=== PATIENT | male | born 1955 | race Caucasian/White ===

== ENCOUNTER → 2017-12-17 07:17 | Outpatient (CLI) | payer OTHER, MEDICAID, SELFPAY ==
[2017-12-17 09:02] LABS: Free T3, Triiodothyronine Free 5.72 pg/mL (2.77-5.27); Free T4, Direct Thyroxine 1.31 ng/dL (0.78-2.19); Triiodothryronine T3 Uptake 31.7 % (23.5-40.5)
[2017-12-17 09:15] LABS: Thyroid Stimulating Hormone 0.33 uIU/mL (0.47-4.68)
== END ==
PROVIDERS: PCP Nurse Practitioner Family; Visit Provider Nurse Practitioner Family
DX: E05.90 Thyrotoxicosis, unspecified without thyrotoxic crisis or storm (principal)
CPT/HCPCS: 36415; 84439; 84443; 84479; 84481

== ENCOUNTER → 2018-02-02 09:28 | Outpatient (CLI) | payer OTHER, MEDICAID, SELFPAY ==
[2018-02-02 11:25] LABS: Free T3, Triiodothyronine Free 5.28 pg/mL (2.77-5.27); Free T4, Direct Thyroxine 1.41 ng/dL (0.78-2.19); Triiodothryronine T3 Uptake 34.3 % (23.5-40.5)
[2018-02-02 11:39] LABS: Thyroid Stimulating Hormone 0.28 uIU/mL (0.47-4.68)
[2018-02-05 20:27] LABS: Testosterone Free 53.4 pg/mL (35.0-155.0); Testosterone Total 483 ng/dL (250-1100)
== END ==
PROVIDERS: Family Provider Nurse Practitioner Family; PCP Nurse Practitioner Family; Visit Provider Nurse Practitioner Family
DX: R53.83 Other fatigue (principal); E05.90 Thyrotoxicosis, unspecified without thyrotoxic crisis or storm
CPT/HCPCS: 36415; 84402; 84403; 84439; 84443; 84479; 84481

== ENCOUNTER → 2018-04-20 07:57 | Outpatient (CLI) | payer OTHER, MEDICAID, SELFPAY ==
--- NOTE | 2018-04-20 | DI.US.S_ITS ---
PROCEDURE: US ABDOMEN COMPLETE INDICATIONS: ABDOMINAL PAIN TECHNIQUE: Real-time scanning was performed of the abdominal and retroperitoneal organs, with image documentation. COMPARISON: [facility], CT, CT ABD PELVIS W CON, 01/20/2016, 10:46. FINDINGS: Liver: Liver is normal in size and homogeneous in echotexture. Gallbladder: Gallbladder demonstrates nonmobile areas of increased echogenicity the largest measuring 1 cm. Wall thickness is within normal limits measuring 2.4 mm. Biliary ducts: Intrahepatic bile ducts are non-dilated. Extrahepatic bile duct caliber measures 6 mm. Normal is 6-7 mm or less in diameter, or 10 mm or less post-cholecystectomy. Pancreas: Visualized portions of the pancreas are sonographically normal. Spleen: Spleen is normal in size and homogeneous in echotexture. Kidneys: Kidneys are normal in size and echotexture. Right kidney measures 11.9 cm long; left kidney measures 11.9 cm long. No hydronephrosis or nephrolithiasis. No solid masses. Aorta: Visualized aorta is normal in caliber at less than 3 cm. Iliacs: Proximal common iliac arteries are normal in caliber at less than 2.5 cm. IVC: Intrahepatic inferior vena cava is patent. Miscellaneous: No free abdominal fluid. IMPRESSION: 1. Multiple foci of non-mobile increased echogenicity within the gallbladder suggestive of polyps. Dictated by: Liliana Gonzalez M.D. on 04/20/2018 at 11:17 Approved by: Liliana Gonzalez M.D. on 04/20/2018 at 11:19
== END ==
PROVIDERS: Family Provider Nurse Practitioner Family; PCP Nurse Practitioner Family; Visit Provider Nurse Practitioner Family
DX: R10.9 Unspecified abdominal pain (principal)
CPT/HCPCS: 76700

== ENCOUNTER 2018-05-20 10:08 | Day surgery (SDC) | payer OTHER, MEDICAID, SELFPAY ==
[2018-05-20 10:35] VITALS: BP 175/95; PULSE 89; RESP 16; TEMP 36.2; O2SAT 93; BMI 28.8
--- NOTE | 2018-05-20 10:38 | P.HP_ITS ---
History of Present Illness Date Patient Seen: 05/20/18 Chief complaint: [id number] Narrative: 62-year-old male with a family history of colon cancer in his father who is here for colon polyp surveillance. His last colonoscopy was in 2012 and the patient states that he had polyps on that exam. The procedure report is not available to wi Meds Allergies Allergy/AdvReac Type Severity Reaction Status Date / Time No Known Drug Allergies Allergy Verified 05/20/18 10:33 Review of Systems Review of Systems All systems reviewed & are unremarkable except as noted in HPI and below Exam Narrative Exam Narrative: General: Patient is overweight, not in apparent distress Cardiovascular: Regular rate and rhythm, no murmurs, rubs, or gallops; no evidence of edema; no palpable abdominal aortic aneurysm Gastrointestinal: Normoactive bowel sounds, soft, nontender, nondistended, no rebound tenderness, no hepatosplenomegaly, no evidence of hernia Assessment & Plan Plan: Assessment/Plan Narrative: 62-year-old male with a family history of colon cancer in his father who is here for colon polyp surveillance. Prior colonoscopy in 2012 revealed polyps per the patient. He has no active GI symptoms at present Regarding the procedure(s), the risks and potential complications, benefits, and alternatives (including not doing the procedure) were discussed with the patient. The risks include but are not limited to bleeding, splenic injury, infection, perforation which may require surgical intervention, missed lesions, and adverse reactions to sedative medicines. After a question and answer period , the patient agreed to proceed with the procedure(s) and gives informed consent.
[2018-05-20] MEDS: SODIUM CHLORIDE 0.9% 1,000 ML 70 ML IV (10:41)
--- NOTE | 2018-05-20 11:38 | P.OP.ENDO_ITS ---
Operative Date/Time/Diagnoses Date of procedure: 05/20/18 Procedure Notes Procedure in detail: Surgeon: Ed Monique MD Procedure: Colonoscopy Preoperative diagnosis: Colon polyp surveillance with polyps of unknown histology in 2013; family history of colon cancer in father Postoperative diagnosis: Left-sided diverticulosis, grade 2 internal hemorrhoids Medications: Conscious sedation using 5 mg IV of Midazolam and 100 mcg IV of Fentanyl Preanesthesia Assessment An H and P was performed/updated and the Px?s ASA class is 2. The procedure was discussed in detail with the patient. The potential risks and complications including infection, bleeding, missed lesions, perforation, need for surgery in case of perforation, prolonged hospital stay, and were explained. A brief question and answer period was allotted and once all questions were answered, informed consent was obtained. The patient was brought back to the procedure room and placed on standard monitoring. The patient?s vital signs were monitored continuously throughout the entire procedure. Prior to starting, a timeout was performed to confirm the patient?s identity, allergies, medications, and procedure. Procedure in detail The patient was placed in left lateral decubitus position and once adequate sedation was obtained a VANESSA was performed. The digital rectal examination did not reveal any palpable lesions. The tip of the colonoscope was placed in the anal canal and advanced without difficulty all the way to the cecum which was identified by the appendiceal orifice and the ileocecal valve. The terminal ileum was intubated to a distance of 5 cm from the ileocecal valve and there was no note of any mucosal abnormality. The colonoscope was brought back to the cecum and careful examination of all fierro of the colon was performed with irrigation of any residual stool. The colonic mucosa appeared without abnormality with no polyp seen. In the descending colon and sigmoid colon there were note of multiple medium- size diverticula Retroflexion was performed in the rectum which revealed grade 2 internal hemorrhoids The patient tolerated the procedure well and will be brought back to the recovery area to be discharged once criteria are met. The prep was judged to be good and adequate to identify polyps less than 5 mm. The withdrawal time was 8 min. The total physician intraservice time was 13 min. Complications There were no complications and estimated blood loss was none. Recommendations: High fiber diet Continue outPx medications Repeat colonoscopy in 5 years for surveillance An emergency contact number was given to the patient for any complications related to the procedure
[2018-05-20] MEDS: MIDAZOLAM 5 MG/5 ML VIAL IV (11:42)
[2018-05-20] MEDS: fentaNYL 250 MCG/5 ML INJ IV (11:42)
--- NOTE | 2018-05-20 11:53 | PM.DS.1 ---
History of Present Illness Chief complaint: [id number] Narrative: 62-year-old male with a family history of colon cancer in his father who is here for colon polyp surveillance. His last colonoscopy was in 2012 and the patient states that he had polyps on that exam. The procedure report is not available to me Discharge Providers Primary care physician: SEEMA Sandoval Discharge provider: Ed Monique MD Discharge Date: 05/20/18 Exam Vital Signs (past 8 hours): - 05/20/18 10:35 Temperature 97.2 F L Pulse Rate 89 Respiratory Rate 16 Blood Pressure 175/95 H Pulse Oximetry 93 Oxygen Delivery Method Room Air Narrative Exam Narrative: General: Patient is overweight, not in apparent distress Cardiovascular: Regular rate and rhythm, no murmurs, rubs, or gallops; no evidence of edema; no palpable abdominal aortic aneurysm Gastrointestinal: Normoactive bowel sounds, soft, nontender, nondistended, no rebound tenderness, no hepatosplenomegaly, no evidence of hernia Discharge Plan Discharge Plan Patient Disposition: Home Discharge Med Rec/Prescriptions Discharge Orders: Discharge (Order); Ordered 05/20/18 Ordered By: Ed Monique Provider Discharge Instructions Diet: Diet as Tolerated Visit Report/Discharge Packet Stand Alone Forms: Surgery Discharge Discharge Data Primary Care Provider: Ratna Jennings Attending Provider: Ed Monique
[2018-05-20 12:20] VITALS: BP 131/84; PULSE 86; RESP 20; TEMP 36.6; O2SAT 95
== END 2018-05-20 12:20 | disposition home or self-care (01) ==
PROVIDERS: Family Provider Nurse Practitioner Family; PCP Nurse Practitioner Family; Visit Provider Internal Medicine Gastroenterology
PROC: 0DJD8ZZ Inspection of Lower Intestinal Tract, Via Natural or Artificial Opening Endoscopic (ICD-10-PCS; CPT 45378; principal; 2018-05-20 11:30)
DX: Z86.010 Personal history of colon polyps (principal); Z80.0 Family history of malignant neoplasm of digestive organs; K57.30 Diverticulosis of large intestine without perforation or abscess without bleeding; K64.1 Second degree hemorrhoids
CPT/HCPCS: 45378; J2250; J3010

== ENCOUNTER → 2018-09-09 12:19 | Outpatient (CLI) | payer OTHER, MEDICAID, SELFPAY ==
[2018-09-09 12:52] LABS: Add Manual Diff / Slide Review NO; Basophils Absolute Auto 0 /uL (0-100); Basophils Percent Auto 0.5 % (0-2); Eosinophils Absolute Auto 100 /uL (0-450); Eosinophils Percent Auto 1.3 % (2-4); Hematocrit 47.6 % (41-53); Hemoglobin 16.2 g/dL (13.5-17.5); Lymphocytes Absolute Auto 1700 /uL (1100-4500); Lymphocytes Percent Auto 25.6 % (25-40); Mean Corpuscular Hemoglobin 32.2 PG (26-34); Mean Corpuscular Volume 94.5 fL (80-100); Monocytes Absolute Auto 500 /uL (0-900); Monocytes Percent Auto 7.4 % (3-14); Neutrophils Absolute Auto 4300 /uL (1500-7000); Neutrophils Percent Auto 65.2 % (50-75); Platelet Count 283 X10^3/uL (150-400); Red Blood Cell Count 5.03 X10^6/uL (4.5-5.9); Red Cell Distribution Width 13.4 % (11.6-14.8); White Blood Cell Count 6.6 X10^3/uL (4.5-11.0)
[2018-09-09 13:29] LABS: Alanine Aminotransferase 43 IU/L (21-72); Albumin 4.7 g/dL (3.5-5.0); Albumin Globulin Ratio 1.3 (1.0-2.8); Alkaline Phosphatase 71 U/L (38-126); Amylase 111 U/L (30-110); Aspartate Aminotransferase 31 IU/L (17-59); Bilirubin Total 0.2 mg/dL (0.2-1.3); Blood Urea Nitrogen 14 mg/dL (9-20); Calcium 9.8 mg/dL (8.4-10.2); Carbon Dioxide 27 mmol/L (22-32); Chloride 100 mmol/L (98-107); Estimated Glomerular Filt Rate > 60.0 mL/min (>60); Globulin 3.6 g/dL (1.7-4.1); Glucose 115 mg/dL (80-110); HEMOLYSIS 16 (0-50); Lipase 61 U/L (23-300); Potassium 4.4 mmol/L (3.4-5.1); Sodium 138 mmol/L (137-145); Total Protein 8.3 g/dL (6.3-8.2)
[2018-09-09 13:46] LABS: Free T3, Triiodothyronine Free 5.64 pg/mL (2.77-5.27); Free T4, Direct Thyroxine 1.28 ng/dL (0.78-2.19); T4 Total Thyroxine 9.97 ug/dL (5.5-11.0)
[2018-09-09 13:59] LABS: Thyroid Stimulating Hormone 0.47 uIU/mL (0.47-4.68)
[2018-09-12 14:24] LABS: PSA Free % 33 % (calc) (> 25); PSA, Total 1.5 ng/mL (< 4.1)
== END ==
PROVIDERS: Family Provider Nurse Practitioner Family; PCP Nurse Practitioner Family; Visit Provider Nurse Practitioner Family
DX: E05.90 Thyrotoxicosis, unspecified without thyrotoxic crisis or storm (principal); N40.0 Benign prostatic hyperplasia without lower urinary tract symptoms; R21 Rash and other nonspecific skin eruption; R52 Pain, unspecified
CPT/HCPCS: 36415; 80053; 82150; 83690; 84153; 84154; 84436; 84439; 84443; 84481; 85025

== ENCOUNTER → 2019-02-23 07:56 | Outpatient (CLI) | payer OTHER, MEDICAID, SELFPAY ==
--- NOTE | 2019-02-23 | DI.CT.S_ITS ---
PROCEDURE: CT ABDOMEN PELVIS W CON INDICATIONS: change in bowel habbits TECHNIQUE: After the administration of oral and intravenous contrast, 5 mm thick sections acquired from the diaphragms to the symphysis. 5 mm thick coronal and sagittal reformats were performed. For radiation dose reduction, the following was used: automated exposure control, adjustment of mA and/or kV according to patient size. COMPARISON: [facility], , ABDOMEN COMPLETE, 04/20/2018, 8:39. FINDINGS: Image quality: Excellent. ABDOMEN: Lung bases: Lung bases are clear. Heart size is normal. Solid organs: Liver is normal in size and enhancement. Gallbladder appears normal. Biliary system is non-dilated. Pancreas enhances normally. Spleen is normal in size and enhancement. No adrenal nodules. Kidneys are normal in size and enhancement, without hydronephrosis. Peritoneum and bowel: Stomach, small bowel, and colon loops are normal in caliber and wall thickness. No free fluid or air. Nodes and vessels: No retroperitoneal or mesenteric adenopathy. Aorta and inferior vena cava are normal in caliber. Miscellaneous: No ventral hernias. PELVIS: Genitourinary: Bladder wall thickness is normal. Miscellaneous: No inguinal hernias or adenopathy. Stool is present within the colon to the degree that accurate assessment for presence or absence of a colonic malignancy that is plaque-like or small is limited. Bones: No suspicious bony lesions. No vertebral body compression fractures. IMPRESSION: Source of change in bowel habits is not known. The study appears normal for age. Please note that stool present within the colon significantly degrades the ability of the examination to detect colonic malignancy. Please correlate for whether endoscopic evaluation of the colon has been performed. Dictated by: Brennan Stanley M.D. on 02/23/2019 at 10:26 Approved by: Brennan Stanley M.D. on 02/23/2019 at 10:40
== END ==
PROVIDERS: PCP Student in an Organized Health Care Education/Training Program; Visit Provider Student in an Organized Health Care Education/Training Program
DX: R19.4 Change in bowel habit (principal)
CPT/HCPCS: 74177; Q9967

== ENCOUNTER → 2019-04-08 07:16 | Outpatient (CLI) | payer OTHER, MEDICAID, SELFPAY ==
--- NOTE | 2019-04-08 | DI.NM.S_ITS ---
PROCEDURE: NM HIDA WITH CCK PHARMACEUTICAL: 5.4 mCi Tc-99m mebrofenin IV; 1.0 mcg CCK IV. INDICATIONS: abdominal pain TECHNIQUE: Following intravenous administration of Tc-99m mebrofenin, sequential anterior abdominal images were obtained. To evaluate the contractile response of the gallbladder in response to Cholecystokinin (CCK), sincalide (0.02 ?g/kg) was administered by slow intravenous infusion approximately 60 minutes after the administration of the radiopharmaceutical. Sequential imaging was continued for 30 minutes after the start of CCK infusion. Gallbladder ejection fraction was calculated. COMPARISON: [facility], CT, CT ABDOMEN PELVIS W CON, 02/23/2019, 9:09. FINDINGS: Biliary scan: There is normal tracer uptake and excretion by the liver. There is normal visualization of the intrahepatic ducts, common bile duct, and gallbladder. There is normal tracer transit into the duodenum. CCK stimulation: There is normal contractile response of the gallbladder to CCK infusion. The calculated gallbladder ejection fraction is 91%; normal values are above 35%. It has been shown that any patient abdominal pain after CCK administration is related to the rate of CCK injection, rather than to any underlying gallbladder disease (Clinical Nuclear Medicine 2012; 37: 63-70. Journal of Nuclear Medicine 2014; 55: 1-9). IMPRESSION: 1. No nuclear medicine evidence of cholecystitis. Patent common bile duct. 2. Normal gallbladder ejection fraction at 91%. Dictated by: Isaias Jones M.D. on 04/08/2019 at 13:47 Approved by: Isaias Jones M.D. on 04/08/2019 at 13:49
== END ==
PROVIDERS: PCP Student in an Organized Health Care Education/Training Program; Visit Provider Student in an Organized Health Care Education/Training Program
DX: R10.9 Unspecified abdominal pain (principal)
CPT/HCPCS: 78227; A9537; J2805

== ENCOUNTER → 2020-12-08 07:30 | Outpatient (CLI) | payer OTHER, SELFPAY ==
[2020-12-08] MEDS: COVID-19 VACC, Ad26(JANSSEN)/PF 0.5 ML IM (07:38)
== END ==
PROVIDERS: PCP Student in an Organized Health Care Education/Training Program; Visit Provider Internal Medicine
DX: Z23 Encounter for immunization (principal)
CPT/HCPCS: 0031A; 91303

== ENCOUNTER 2020-12-12 12:57 | Emergency (ER) | payer SELFPAY ==
[2020-12-12 13:01] VITALS: BP 167/79; PULSE 112; RESP 20; TEMP 36.4; O2SAT 98
--- NOTE | 2020-12-12 14:08 | ED_ITS ---
HPI - Skin/Abscess/Foreign Bdy General Chief complaint: Skin/Abscess/Foreign Body Stated complaint: BACTERIAL/FUNGAL INFECTION EATING ME AWAY Time Seen by Provider: 12/12/20 13:43 Source: patient Mode of arrival: Ambulatory Limitations: no limitations History of Present Illness HPI narrative: Patient is a 65-year-old male who is here for evaluation of what he thinks is a fungal/bacterial infection that is eating weight his body. His HPI is somewhat tangential. He states that for the past 4 years he has had sym ptoms throughout his body that he describes as rashes and bruising. He states that he has seen his primary doctor for this and was told that everything has been okay and has not been started on any medications. 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 He stated that he looked up his symptoms on [employer] and is not convinced that he has a fungal infection. Related Data Home Medications Medication Instructions Recorded Confirmed No Known Home Medications 08/08/20 08/08/20 Allergies Allergy/AdvReac Type Severity Reaction Status Date / Time No Known Drug Allergies Allergy Verified 08/08/20 11:39 Review of Systems Constitutional Constitutional: Denies fever(s) and Reports malaise Cardiovascular Cardiovascular: Denies chest pain and Denies dyspnea Respiratory Respiratory: Denies dyspnea Gastrointestinal Gastrointestinal: Denies abdominal pain Musculoskeletal Musculoskeletal: Denies arthralgias and Denies myalgias Integumentary/Breasts Skin/Breast: Reports rash Neurologic Neurologic: Reports system reviewed and no additional complaints, except as documented Endocrine Endocrine: Reports system reviewed and no additional complaints, except as documented Hematologic/Lymphatic On Anticoagulants: No Allergic/Immunologic Allergic/Immunologic: Denies urticaria Patient History Medical History Diverticulosis Internal hemorrhoids Rectal prolapse Surgical History History of arthroscopy of both knees History of colonoscopy History of hand surgery Family History Father Cancer Mother Stroke Social History marital status: unknown household members: none occupational status: previously employed Smoking Status: Never smoker alcohol intake: current substance use type: does not use Smoking Status: Never smoker Exam Initial Vital Signs Initial Vital Signs: Vital Signs Temperature 97.5 F L 12/12/20 13:01 Pulse Rate 112 H 12/12/20 13:01 Respiratory Rate 20 12/12/20 13:01 Blood Pressure 167/79 H 12/12/20 13:01 Pulse Oximetry 98 12/12/20 13:01 Const General: cooperative and comfortable Limitations: mental status not altered HENMT Head: normal to inspection and normocephalic Resp Effort & Inspection: normal respiratory effort Cardio Rate: regular rate Skin Lesions: no lesions Rashes: no rashes Neuro General: patient alert, patient awake and patient oriented x3 Speech: speech normal Extrem General: normal to inspection and capillary refill normal Psych Appearance: grossly normal and well kempt Scores GCS [place] coma scale eye opening: Spontaneous [place] coma scale verbal response: Orientated [place] coma scale motor response: Obey commands [place] coma scale total score: 15 Course Vital Signs Vital signs: Vital Signs - 8 hr 12/12/20 13:01 Temperature 97.5 F L Pulse Rate 112 H Respiratory Rate 20 Blood Pressure 167/79 H Pulse Oximetry 98 MDM - Skin/Abscess/Foreign Bdy Lab Data Attestation: I reviewed the patient's lab results. Result diagrams: 12/12/20 14:22 12/12/20 14:22 Labs: Lab Results 12/12/20 12/12/20 Range/Units 14:22 14:22 WBC 5.9 (4.5-11.0) X10^3/uL RBC 4.73 (4.5-5.9) X10^6/uL Hgb 15.2 (13.5-17.5) g/dL Hct 44.1 (41-53) % MCV 93.3 (80-100) fL MCH 32.2 (26-34) PG MCHC 34.5 (30-36) % RDW 13.2 (11.6-14.8) % Plt Count 219 (150-400) X10^3/uL Neut % (Auto) 60.2 (50-75) % Lymph % (Auto) 26.4 (25-40) % Terrell % (Auto) 10.0 (3-14) % Eos % (Auto) 2.8 (2-4) % Baso % (Auto) 0.6 (0-2) % Neut # (Auto) 3600 (9009-1209) /uL Lymph # (Auto) 1600 (2035-3346) /uL Terrell # (Auto) 600 (0-900) /uL Eos # (Auto) 200 (0-450) /uL Baso # (Auto) 0 (0-100) /uL Sodium 137 (137-145) mmol/L Potassium 3.8 (3.4-5.1) mmol/L Chloride 104 (98-107) mmol/L Carbon Dioxide 28 (22-32) mmol/L BUN 17 (9-20) mg/dL Creatinine 0.80 (0.66-1.25) mg/dL Estimated GFR > 60.0 (>60) mL/min BUN/Creatinine Ratio 21.3 (6-22) Glucose 128 H (80-110) mg/dL Calcium 9.2 (8.4-10.2) mg/dL MDM Narrative Medical decision making narrative: The areas that the patient 0.21 his skin is having rashes appears to be normal skin. He also points to the veins located in the back of his hands as being rashes. I tried to reassure him that this was all normal skin in that there was no signs of any infection. His labs are unremarkable. There is no signs of any intoxication. He is a GCS of 15. I tried to reassure the patient that he does not have a bacterial/fungal infection. Informed him that there is no treatment needed. I think he was somewhat upset with this and I believe that he still thinks he has infection. No further workup needed in the emergency department. Discharge Plan Departure Patient Disposition: Home Clinical Impression: Feared complaint without diagnosis Activity Restrictions/Additional Instructions: Your labs are normal today. There is no indication to do any antibiotics or any other treatment for fungal infections. I recommend that you keep your appointment with your primary doctor that you have scheduled later this week. Prescriptions: No Action No Known Home Medications RF: 0 Referrals: Lianne Anders MD [Primary Care Provider] -
[2020-12-12 14:29] LABS: Add Manual Diff / Slide Review NO; Basophils Absolute Auto 0 /uL (0-100); Basophils Percent Auto 0.6 % (0-2); Eosinophils Absolute Auto 200 /uL (0-450); Eosinophils Percent Auto 2.8 % (2-4); Hematocrit 44.1 % (41-53); Hemoglobin 15.2 g/dL (13.5-17.5); Lymphocytes Absolute Auto 1600 /uL (1100-4500); Lymphocytes Percent Auto 26.4 % (25-40); Mean Corpuscular HGB Conc 34.5 % (30-36); Mean Corpuscular Hemoglobin 32.2 PG (26-34); Mean Corpuscular Volume 93.3 fL (80-100); Monocytes Absolute Auto 600 /uL (0-900); Neutrophils Absolute Auto 3600 /uL (1500-7000); Neutrophils Percent Auto 60.2 % (50-75); Platelet Count 219 X10^3/uL (150-400); Red Blood Cell Count 4.73 X10^6/uL (4.5-5.9); Red Cell Distribution Width 13.2 % (11.6-14.8); White Blood Cell Count 5.9 X10^3/uL (4.5-11.0)
[2020-12-12 14:58] LABS: BUN Creatinine Ratio 21.3 (6-22); Blood Urea Nitrogen 17 mg/dL (9-20); Calcium 9.2 mg/dL (8.4-10.2); Carbon Dioxide 28 mmol/L (22-32); Chloride 104 mmol/L (98-107); Estimated Glomerular Filt Rate > 60.0 mL/min (>60); Glucose 128 mg/dL (80-110); HEMOLYSIS < 15 (0-50); Potassium 3.8 mmol/L (3.4-5.1); Sodium 137 mmol/L (137-145)
--- NOTE | 2020-12-12 16:23 | PC.NURSE ---
Patient reports bacterial fungal infection. No wounds or abnormalities noted to skin.
== END 2020-12-12 15:20 | disposition home or self-care (01) ==
PROVIDERS: Emergency Provider Emergency Medicine; PCP Student in an Organized Health Care Education/Training Program
DX: R21 Rash and other nonspecific skin eruption (principal)
CPT/HCPCS: 36415; 80048; 85025; 99281; 99283

== ENCOUNTER → 2021-06-22 11:01 | Outpatient (CLI) | payer SELFPAY | PROVIDERS: Referring Provider Nurse Practitioner Family; Visit Provider Nurse Practitioner Family | DX: R19.5 Other fecal abnormalities (principal) | CPT/HCPCS: 87045; 87177; 87899 ==

== ENCOUNTER 2023-08-27 09:35 | Day surgery (SDC) | payer MEDICARE, SELFPAY ==
--- NOTE | 2023-08-27 | PATH_ITS ---
[facility] Accession Number: [id number] No. of containers..02 Tissue . 01 Material submitted: . PART A: esophagus - ESOPHAGUS PART B: gastrointestinal site - STOMACH . 01 Diagnosis: A. 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 Negative for dysplasia and malignancy. . B. Stomach, Biopsy: Gastric antral and body mucosa with no diagnostic abnormality. No evidence of Helicobacter organisms on H/E stain. Negative for intestinal metaplasia. Negative for dysplasia or malignancy. [facility] 08/29/2023 1114 Local . 01 Comment: A. The findings in the esophageal biopsy would be consistent with Gilliland's esophagus in the appropriate endoscopic setting. . 01 Electronically signed: . Chemo Dsouza MD, PhD, Pathologist NPI- [id number] . 01 Gross description: . Part A: ESOOPHAGUS: Received in formalin are 2 fragment(s) of cervantes, soft tissue measuring 0.2 x 0.1 x 0.1 cm to 0.3 x 0.2 x 0.2 cm submitted entirely in 1 cassette(s) Part B: STOMACH: Received in formalin are 2 fragment(s) of cervantes, soft tissue measuring 0.2 x 0.2 x 0.2 cm to 0.3 x 0.3 x 0.2 cm submitted entirely in 1 cassette(s) /[facility] 08/28/2023 1916 Local . 01 Pathologist provided ICD-10: K22.70 . 01 CPT . 256574, 020129 Specimen Comment: A courtesy copy of this report has been sent to [phone] Performed at: 01 [facility] [address] [place] [address] [address], [place], [place] [id number] MD Neeraj Butterfield MD Phone: [phone]
[2023-08-27 10:13] VITALS: BP 167/77; PULSE 71; RESP 17; TEMP 36.4; O2SAT 97
[2023-08-27] MEDS: LACTATED RINGERS 1,000 ML 42 ML IV (10:23)
--- NOTE | 2023-08-27 10:45 | PM.OP.EGD ---
Operative Date/Time/Diagnoses Date of procedure: 08/27/23 Pre-op diagnosis: See indication and findings Procedure & Clinicians Study performed: EGD Indications: Possible history of Gilliland's esophagus need for EGD Surgeon: Sharee Eddy Procedure Notes Procedure in detail: After informed consent was obtained patient was placed in left lateral decubitus position. The video upper scope was placed into the oropharynx and with the patient's help swallowed into the esophagus. The esophagus stomach and duodenum were carefully examined. On withdrawal, retroflexed view the GE junction was performed. The scope was removed. The patient tolerated procedure well. Blood loss none Complications none Sedation mac Findings 1. Normal esophagus until the squamocolumnar junction. Here there was a single very small tongue approximately 5 mm in size. Two biopsies taken to rule out Gilliland's esophagus. Otherwise squamocolumnar junction was very irregular. 2. Extensive severe erythema in multiple areas leaking hematin flecks throughout the stomach both proximally and distally and the duodenal bulb and sweep. Biopsies taken to rule out Helicobacter. Of note is patient denies taking any nonsteroidal anti-inflammatory agents Will be in touch regarding biopsies. In particular his gastroduodenal biopsies. Will also have to discuss whether done this finding represents true Gilliland's esophagus and whether it deserves routine follow-up.
--- NOTE | 2023-08-27 10:47 | P.HP_ITS ---
History of Present Illness History of Present Illness Date Patient Seen: 08/27/23 Chief complaint: EGD Narrative: History of Gilliland's esophagus [facility] Medical History Diverticulosis Internal hemorrhoids Rectal prolapse Surgical History History of arthroscopy of both knees History of colonoscopy History of hand surgery Family History Father Cancer Mother Stroke Social History marital status: unknown household members: none occupational status: previously employed Smoking Status: Never smoker alcohol intake: current substance use type: does not use Meds Home Medications and Allergies Home Medications Medication Instructions Recorded Confirmed Type No Known Home Medications 08/08/20 08/27/23 History Allergies Allergy/AdvReac Type Severity Reaction Status Date / Time No Known Drug Allergies Allergy Verified 08/27/23 10:08 Exam Vital Signs (past 8 hours): - 08/27/23 10:13 Temperature 97.6 F Pulse Rate 71 Respiratory Rate 17 Blood Pressure 167/77 H Pulse Oximetry 97 Oxygen Delivery Method Room Air Oxygen Delivery Method Room Air Narrative Exam Narrative: Oropharynx free of lesions Chest clear to auscultation percussion Cardiac exam reveals no S3 or murmur Assessment & Plan Assessment & Plan narrative: History of Gilliland's esophagus need for follow-up EGD. Risks, benefits, alter natives have been explained.
== END 2023-08-27 11:40 | disposition home or self-care (01) ==
PROVIDERS: PCP Nurse Practitioner Family; Referring Provider Internal Medicine Gastroenterology; Visit Provider Internal Medicine Gastroenterology
PROC: 0DJ08ZZ Inspection of Upper Intestinal Tract, Via Natural or Artificial Opening Endoscopic (ICD-10-PCS; CPT 43235; principal; 2023-08-27 11:00)
DX: Z09 Encounter for follow-up examination after completed treatment for conditions other than malignant neoplasm (principal); Z87.19 Personal history of other diseases of the digestive system; K22.70 Barrett's esophagus without dysplasia
CPT/HCPCS: 43239; J2704

== ENCOUNTER → 2023-10-23 10:12 | Outpatient (CLI) | payer MEDICARE, SELFPAY ==
[2023-10-23 11:12] LABS: BUN Creatinine Ratio 15.8 (6-22); Blood Urea Nitrogen 12 mg/dL (9-20); Calcium 9.7 mg/dL (8.4-10.2); Carbon Dioxide 28 mmol/L (22-32); Chloride 103 mmol/L (98-107); Estimated Glomerular Filt Rate > 60 mL/min (>60); Glucose 103 mg/dL (80-110); HEMOLYSIS < 15 (0-50); Potassium 4.1 mmol/L (3.4-5.1); Sodium 137 mmol/L (137-145)
== END ==
PROVIDERS: PCP Nurse Practitioner Family; Referring Provider Urology; Visit Provider Urology
DX: R31.29 Other microscopic hematuria (principal); R39.9 Unspecified symptoms and signs involving the genitourinary system; Z87.891 Personal history of nicotine dependence; Z87.442 Personal history of urinary calculi
CPT/HCPCS: 36415; 80048; 81002; 99214

== ENCOUNTER → 2025-02-24 07:35 | Outpatient (CLI) | payer MEDICARE, SELFPAY | PROVIDERS: PCP Orthopaedic Surgery; Referring Provider Orthopaedic Surgery; Visit Provider Orthopaedic Surgery | DX: R25.2 Cramp and spasm (principal) | CPT/HCPCS: 95885; 95886; 95912 ==